=== PATIENT | female | born 1990 | race Caucasian/White ===

== ENCOUNTER 2018-02-23 18:21 | Outpatient (CLI) | END 2018-02-23 22:30 | disposition home or self-care (01) ==

== ENCOUNTER 2018-02-26 17:11 | Outpatient (CLI) | END 2018-02-27 00:06 | disposition home or self-care (01) ==

== ENCOUNTER 2018-03-16 11:08 | Inpatient (IN) | END 2018-03-21 19:00 | disposition home or self-care (01) | DRG 766 ==